=== PATIENT | male | born 1975 | race African-American/Black ===

== ENCOUNTER 2022-10-09 08:32 | Emergency (ER) | payer MEDICAID, OTHER ==
[~2022-10-09] VITALS: Ht 182.9 cm; Wt 80.0 kg
[2022-10-09] MEDS ORDERED: LIDOCAINE HCL/EPINEPHRINE 1%-EPI 1:100,000 20 ML VIAL INFIL ONE (09:45)
[2022-10-09] MEDS ORDERED: BACITRACIN ZINC OINT UDPKT TOP ONE (09:45)
[2022-10-09] MEDS ORDERED: LIDOCAINE HCL/EPINEPHRINE 1%-EPI 1:100,000 10 ML VIAL INFIL SCH (09:45)
[2022-10-09] MEDS ORDERED: AMOX1TAB16 MT (09:54)
[2022-10-09] MEDS ORDERED: CHLO473M2 MT (09:54)
[2022-10-09] MEDS ORDERED: TOPUD MT (09:58)
[2022-10-09] MEDS ORDERED: IBUP-2030 MT (09:58)
[2022-10-09] MEDS ORDERED: HYDROCODONE/ACETAMINOPHEN 10/325MG TABLET PO ONE (10:00)
[2022-10-09] MEDS ORDERED: IBUPROFEN 800MG TABLET PO ONE (10:00)
[2022-10-09] MEDS ORDERED: IBUPROFEN 400MG TABLET PO NR (10:00)
[2022-10-09 10:14] VITALS: BP 127/84
== END 2022-10-09 10:17 | disposition home or self-care (01) ==
LOC: ER 08:32
DX: K04.7 Periapical abscess without sinus (principal)
CPT/HCPCS: 10060; 99283; J3490; Z7610